=== PATIENT | male | born 1995 | race Caucasian/White ===

== ENCOUNTER 2022-03-17 01:20 | Emergency (ER) | payer MEDICAID ==
[~2022-03-17] VITALS: Ht 167.6 cm; Wt 70.8 kg
[2022-03-17 01:25] VITALS: BP 116/70
--- NOTE | 2022-03-17 01:34 | NUR ---
Patient taken to bed 9.
[2022-03-17] MEDS ORDERED: KETOROLAC 60 MG/2 ML VIAL IM ONE (02:00)
--- NOTE | 2022-03-17 03:57 | NUR ---
Dr. Lopez examining patient.
[2022-03-17] MEDS ORDERED: IBUP-2213 PO (04:11)
[2022-03-17 04:17] VITALS: BP 118/70
== END 2022-03-17 04:17 | disposition home or self-care (01) ==
LOC: MED 01:20
DX: S80.12XA Contusion of left lower leg, initial encounter (principal); V49.88XA Car occupant (driver) (passenger) injured in other specified transport accidents, initial encounter; Y93.89 Activity, other specified; Y92.89 Other specified places as the place of occurrence of the external cause; Y99.8 Other external cause status
CPT/HCPCS: 73562; 96372; 99283; J1885; Q0092

== ENCOUNTER 2023-04-22 17:28 | Emergency (ER) | payer MEDICAID ==
[~2023-04-22] VITALS: Ht 165.1 cm; Wt 63.5 kg
[~2023-04-22 17:28] MED LIST: IBUP-2213 PO
[2023-04-22 17:49] VITALS: BP 129/73; PULSE 96; RESP 18; TEMP 98; O2SAT 98
[2023-04-22] MEDS ORDERED: CEFEPIME 1,000 MG in DEXTROSE 5% 50 ML IV ONE (21:20)
[2023-04-22] MEDS ORDERED: VANCOMYCIN 1,000 MG in DEXTROSE 5% 250 ML IV ONE (21:20)
== END 2023-04-22 22:50 | disposition home or self-care (01) ==
LOC: MED 17:28
DX: I80.02 Phlebitis and thrombophlebitis of superficial vessels of left lower extremity (principal); M86.9 Osteomyelitis, unspecified; Z79.899 Other long term (current) drug therapy
CPT/HCPCS: 71045; 73630; 93971; 99284; Q0092

== ENCOUNTER 2023-05-06 20:23 | Inpatient (IN) | payer MEDICAID ==
[~2023-05-06] VITALS: Ht 167.6 cm; Wt 67.1 kg
[2023-05-06] MEDS: NACL 0.9% 1,000 ML IV SCH (03:15)
[2023-05-06 20:41] VITALS: BP 151/73; PULSE 130; RESP 20; TEMP 98.6; O2SAT 98
[2023-05-06] MEDS ORDERED: VANCOMYCIN PER PHARMACY MC PRN (21:10)
[2023-05-06] MEDS ORDERED: CEFEPIME 1,000 MG in DEXTROSE 5% 50 ML IV ONE (21:10)
[2023-05-06] MEDS ORDERED: NACL 0.9% 2,000 ML IV SCH (21:10)
[2023-05-06] MEDS ORDERED: VANCOMYCIN 1GM/DEXT 5% PREMIX 200 ML IV ONE (21:10)
[2023-05-06] MEDS ORDERED: CEFEPIME 1,000 MG VIAL ONE (21:18)
[2023-05-06] MEDS ORDERED: KETOROLAC 30 MG/ML VIAL IVP ONE (21:20)
[2023-05-06] MEDS ORDERED: ACETAMINOPHEN EXTRA STRENGTH 500 MG TAB PO ONE (21:20)
[2023-05-06 21:41] LABS: BASOPHILS % (AUTO) 0.2 % (0.0-2.0); EOSINOPHILS # (AUTO) 0.1 K/uL (0-0.4); EOSINOPHILS % (AUTO) 0.4 % (0.0-4.0); HEMATOCRIT 37.2 % (36-52); HEMOGLOBIN 12.2 g/dL (12.0-18.0); LYMPHOCYTES # (AUTO) 0.9 K/uL (2.0-11.5); LYMPHOCYTES % (AUTO) 5.8 % (20.5-51.1); MEAN CORPUSCULAR HEMOGLOBIN 25 pg (27-31); MEAN CORPUSCULAR HGB CONC 33 g/dL (33-37); MEAN CORPUSCULAR VOLUME 77.6 fL (80-94); MONOCYTES # (AUTO) 0.2 K/uL (0.8-1.0); MONOCYTES % (AUTO) 1.4 % (1.7-9.3); NEUTROPHILS % (AUTO) 92.2 % (42.2-75.2); PLATELET COUNT (AUTO) 451 K/uL (140-450); RED CELL DISTRIBUTION WIDTH 14.9 % (11.6-13.7); WHITE BLOOD COUNT (AUTO) 16.2 K/uL (4.8-10.8)
[2023-05-06 21:50] LABS: CALCIUM 8.9 mg/dL (8.5-10.1); CARBON DIOXIDE 28.2 mmol/L (21-32); CREATININE 1.8 mg/dL (0.6-1.3); POTASSIUM 3.2 mmol/L (3.5-5.1)
[2023-05-06 21:56] LABS: INR 1.06 (0.8-1.2); PARTIAL THROMBOPLASTIN TIME 25.7 secs (22-35.6); PROTHROMBIN TIME 11.1 secs (10.8-13.4)
[2023-05-06 21:57] LABS: ALBUMIN 3.5 g/dL (3.4-5.0); TOTAL BILIRUBIN 0.4 mg/dL (0.0-1.0); TOTAL PROTEIN, SERUM 7.2 g/dL (6.4-8.2)
[2023-05-06 21:58] LABS: CREATINE KINASE, TOTAL 124 U/L (39-308)
[2023-05-06] MEDS ORDERED: VANCOMYCIN 1,000 MG VIAL ONE (22:00)
[2023-05-06 22:04] LABS: LACTIC ACID 2.1 mmol/L (0.4-2.0)
[2023-05-06] MEDS ORDERED: ACETAMINOPHEN 325 MG TAB PO PRN (23:45)
[2023-05-06] MEDS ORDERED: MORPHINE SULFATE 2 MG/ML SYR IVP PRN (23:45)
[2023-05-06 23:49] LABS: APPEARANCE,URINE CLEAR (CLEAR); BILIRUBIN,URINE NEGATIVE (NEGATIVE); BLOOD, URINE NEGATIVE (NEGATIVE); COLOR,URINE YELLOW (YELLOW); LEUKOCYTE ESTERASE ,URINE NEGATIVE (NEGATIVE); NITRITE, URINE NEGATIVE (NEGATIVE); PROTEIN,URINE NEGATIVE (NEGATIVE); UGLUCOSE NEGATIVE (NEGATIVE); UROBILINOGEN,URINE 0.2 EU/dL (0.2 - 1)
[2023-05-07] VITALS: BP 108/56; PULSE 86; RESP 14; TEMP 99.5; O2SAT 99
[2023-05-07] MEDS ORDERED: NACL 0.9% 1,000 ML IV ONE (00:50)
[2023-05-07] MEDS ORDERED: PIPERACILLIN/TAZOBACTAM 2.25 GM VIAL IV ONE ×3 (05:27→22:13)
[2023-05-07] MEDS: PIPERACILLIN/TAZOBACTAM 2.25 GM in DEXTROSE 5% 50 ML IV SCH ×3 (05:33→22:35)
[2023-05-07 07:41] LABS: HEMATOCRIT 36.1 % (36-52); HEMOGLOBIN 11.4 g/dL (12.0-18.0); MEAN CORPUSCULAR HEMOGLOBIN 25 pg (27-31); MEAN CORPUSCULAR HGB CONC 32 g/dL (33-37); MEAN CORPUSCULAR VOLUME 79.3 fL (80-94); PLATELET COUNT (AUTO) 405 K/uL (140-450); RED BLOOD CELL COUNT(AUTO) 4.56 MIL/uL (4.20-6.10); RED CELL DISTRIBUTION WIDTH 14.8 % (11.6-13.7)
[2023-05-07 07:57] LABS: WHITE BLOOD COUNT (AUTO) 31.6 K/uL (4.8-10.8)
[2023-05-07] MEDS ORDERED: VANCOMYCIN PER PHARMACY MC PRN (08:31)
[2023-05-07 08:42] LABS: BASOPHILS % (MANUAL) 0 % (0-2); BLASTS, MANUAL % 0 % (0-0); EOSINOPHILS % (MANUAL) 0 % (0-4); LYMPHOCYTES % (MANUAL) 3 % (20-46); METAMYELOCYTES % 0 % (0-0); MONOCYTES % (MANUAL) 3 % (5-12); MYELOCYTES % 0 % (0-0); OTHER CELLS,MANUAL % 0 (0-0); PLASMA CELLS 0; PLATELET ESTIMATE INCREASED; PROMYELOCYTES % 0 % (0-0); SMUDGE CELLS 0
[2023-05-07 08:53] LABS: ALBUMIN 2.5 g/dL (3.4-5.0); ANION GAP 4.1 (8-16); CALCIUM 7.9 mg/dL (8.5-10.1); CARBON DIOXIDE 24.7 mmol/L (21-32); CREATININE 1.6 mg/dL (0.6-1.3); MAGNESIUM 1.7 mg/dL (1.8-2.4); PHOSPHORUS 3.6 mg/dL (2.5-4.9); POTASSIUM 3.8 mmol/L (3.5-5.1); TOTAL BILIRUBIN 0.8 mg/dL (0.0-1.0); TOTAL PROTEIN, SERUM 5.7 g/dL (6.4-8.2)
[2023-05-07] MEDS ORDERED: VANCOMYCIN HCL 750 MG PDS IV ONE (11:40)
[2023-05-07] MEDS: VANCOMYCIN 750 MG in DEXTROSE 5% 250 ML IV SCH (11:59)
[2023-05-07] MEDS: HYDROcodone/APAP 5/325 MG 1 TAB TAB PO PRN ×2 (13:50→22:58)
[2023-05-07] MEDS: NACL 0.9% 1,000 ML IV SCH ×2 (15:00→22:35)
[2023-05-07 22:00] VITALS: BP 121/67; PULSE 113; PULSE 98; RESP 18; TEMP 100.5; O2SAT 100; O2SAT 98
[2023-05-07] MEDS ORDERED: VANCOMYCIN 1,000 MG VIAL ONE (23:57)
[2023-05-08] VITALS (7 sets, daily range): BP systolic 96–109; BP diastolic 48–57; PULSE 66–100; RESP 18; TEMP 85–98.2; O2SAT 98–100
[2023-05-08] MEDS: VANCOMYCIN 750 MG in DEXTROSE 5% 250 ML IV SCH ×2 (00:46→11:59)
[2023-05-08] MEDS ORDERED: PIPERACILLIN/TAZOBACTAM 2.25 GM VIAL IV ONE (04:21)
[2023-05-08] MEDS: PIPERACILLIN/TAZOBACTAM 2.25 GM in DEXTROSE 5% 50 ML IV SCH ×3 (05:39→20:23)
[2023-05-08] MEDS: NACL 0.9% 1,000 ML IV SCH ×2 (05:41→15:46)
[2023-05-08 07:04] LABS: BASOPHILS # (AUTO) 0.1 K/uL (0.00-0.22); BASOPHILS % (AUTO) 0.6 % (0.0-2.0); EOSINOPHILS # (AUTO) 0.4 K/uL (0-0.4); EOSINOPHILS % (AUTO) 2.9 % (0.0-4.0); HEMATOCRIT 33.6 % (36-52); HEMOGLOBIN 10.7 g/dL (12.0-18.0); LYMPHOCYTES # (AUTO) 2.4 K/uL (2.0-11.5); LYMPHOCYTES % (AUTO) 18.5 % (20.5-51.1); MEAN CORPUSCULAR HEMOGLOBIN 25 pg (27-31); MEAN CORPUSCULAR HGB CONC 32 g/dL (33-37); MEAN CORPUSCULAR VOLUME 79.2 fL (80-94); MONOCYTES % (AUTO) 7.9 % (1.7-9.3); NEUTROPHILS # (AUTO) 9.2 K/uL (1.8-7.7); NEUTROPHILS % (AUTO) 70.1 % (42.2-75.2); PLATELET COUNT (AUTO) 334 K/uL (140-450); RED BLOOD CELL COUNT(AUTO) 4.24 MIL/uL (4.20-6.10); RED CELL DISTRIBUTION WIDTH 14.4 % (11.6-13.7); WHITE BLOOD COUNT (AUTO) 13.2 K/uL (4.8-10.8)
[2023-05-08 07:24] LABS: ALBUMIN 2.3 g/dL (3.4-5.0); ANION GAP 11.2 (8-16); CALCIUM 7.8 mg/dL (8.5-10.1); CARBON DIOXIDE 25.2 mmol/L (21-32); CREATININE 1.5 mg/dL (0.6-1.3); MAGNESIUM 1.9 mg/dL (1.8-2.4); PHOSPHORUS 3.8 mg/dL (2.5-4.9); POTASSIUM 3.4 mmol/L (3.5-5.1); TOTAL BILIRUBIN 0.2 mg/dL (0.0-1.0); TOTAL PROTEIN, SERUM 5.6 g/dL (6.4-8.2)
[2023-05-08] MEDS: SULFAMETH/TRIMETH 400/80MG 1 TAB PO SCH ×2 (08:32→21:23)
[2023-05-08 10:47] LABS: ANION GAP 11.7 (8-16); CALCIUM 7.9 mg/dL (8.5-10.1); CARBON DIOXIDE 25.8 mmol/L (21-32); CREATININE 1.5 mg/dL (0.6-1.3); POTASSIUM 3.5 mmol/L (3.5-5.1)
[2023-05-08] MEDS: VANCOMYCIN 1,000 MG in DEXTROSE 5% 250 ML IV SCH (23:00)
[2023-05-09] VITALS: BP 89/53; PULSE 69; RESP 20; TEMP 98.2; O2SAT 98
[2023-05-09] MEDS: NACL 0.9% 1,000 ML IV SCH ×2 (01:16→13:10)
[2023-05-09 04:00] VITALS: BP 98/38; PULSE 63; PULSE 69; RESP 18; TEMP 98.2; O2SAT 98
[2023-05-09] MEDS: PIPERACILLIN/TAZOBACTAM 2.25 GM in DEXTROSE 5% 50 ML IV SCH ×3 (05:43→20:38)
[2023-05-09 06:14] LABS: BASOPHILS # (AUTO) 0.1 K/uL (0.00-0.22); BASOPHILS % (AUTO) 0.7 % (0.0-2.0); EOSINOPHILS # (AUTO) 0.4 K/uL (0-0.4); EOSINOPHILS % (AUTO) 4.3 % (0.0-4.0); HEMATOCRIT 34.9 % (36-52); HEMOGLOBIN 11.3 g/dL (12.0-18.0); LYMPHOCYTES # (AUTO) 2.5 K/uL (2.0-11.5); LYMPHOCYTES % (AUTO) 25.3 % (20.5-51.1); MEAN CORPUSCULAR HEMOGLOBIN 26 pg (27-31); MEAN CORPUSCULAR HGB CONC 32 g/dL (33-37); MEAN CORPUSCULAR VOLUME 78.6 fL (80-94); MONOCYTES % (AUTO) 10.3 % (1.7-9.3); NEUTROPHILS # (AUTO) 5.9 K/uL (1.8-7.7); NEUTROPHILS % (AUTO) 59.4 % (42.2-75.2); PLATELET COUNT (AUTO) 397 K/uL (140-450); RED BLOOD CELL COUNT(AUTO) 4.44 MIL/uL (4.20-6.10); RED CELL DISTRIBUTION WIDTH 14.6 % (11.6-13.7); WHITE BLOOD COUNT (AUTO) 9.9 K/uL (4.8-10.8)
[2023-05-09 06:33] LABS: ALBUMIN 2.4 g/dL (3.4-5.0); ANION GAP 9.9 (8-16); CALCIUM 8.2 mg/dL (8.5-10.1); CARBON DIOXIDE 27.4 mmol/L (21-32); CREATININE 1.3 mg/dL (0.6-1.3); MAGNESIUM 1.8 mg/dL (1.8-2.4); PHOSPHORUS 3.6 mg/dL (2.5-4.9); POTASSIUM 4.3 mmol/L (3.5-5.1); TOTAL BILIRUBIN 0.2 mg/dL (0.0-1.0); TOTAL PROTEIN, SERUM 6.2 g/dL (6.4-8.2)
[2023-05-09 08:00] VITALS: BP 110/52; PULSE 62; PULSE 70; RESP 20; TEMP 97.7; O2SAT 100
[2023-05-09] MEDS: VANCOMYCIN 1,000 MG in DEXTROSE 5% 250 ML IV SCH ×2 (11:42→22:22)
[2023-05-09 12:00] VITALS: BP 110/52; PULSE 62; RESP 20; TEMP 97.7; O2SAT 100
[2023-05-09 16:00] VITALS: BP 97/52; PULSE 68; RESP 20; TEMP 98.2; O2SAT 100
[2023-05-09 20:00] VITALS: BP 113/48; PULSE 73; RESP 18; TEMP 98.6; O2SAT 100
[2023-05-10 04:00] VITALS: BP 93/47; PULSE 67; RESP 18; TEMP 97.1; O2SAT 100
[2023-05-10] MEDS: PIPERACILLIN/TAZOBACTAM 2.25 GM in DEXTROSE 5% 50 ML IV SCH (05:16)
[2023-05-10 05:40] LABS: BASOPHILS # (AUTO) 0.1 K/uL (0.00-0.22); BASOPHILS % (AUTO) 0.9 % (0.0-2.0); EOSINOPHILS # (AUTO) 0.4 K/uL (0-0.4); EOSINOPHILS % (AUTO) 4.6 % (0.0-4.0); HEMOGLOBIN 12.3 g/dL (12.0-18.0); LYMPHOCYTES # (AUTO) 2.5 K/uL (2.0-11.5); LYMPHOCYTES % (AUTO) 29.4 % (20.5-51.1); MEAN CORPUSCULAR HEMOGLOBIN 26 pg (27-31); MEAN CORPUSCULAR HGB CONC 33 g/dL (33-37); MEAN CORPUSCULAR VOLUME 78.4 fL (80-94); MONOCYTES # (AUTO) 0.7 K/uL (0.8-1.0); MONOCYTES % (AUTO) 8.3 % (1.7-9.3); NEUTROPHILS # (AUTO) 4.9 K/uL (1.8-7.7); NEUTROPHILS % (AUTO) 56.8 % (42.2-75.2); PLATELET COUNT (AUTO) 500 K/uL (140-450); RED BLOOD CELL COUNT(AUTO) 4.84 MIL/uL (4.20-6.10); RED CELL DISTRIBUTION WIDTH 15.1 % (11.6-13.7); WHITE BLOOD COUNT (AUTO) 8.6 K/uL (4.8-10.8)
[2023-05-10 07:22] LABS: ANION GAP 13.9 (8-16); CALCIUM 8.6 mg/dL (8.5-10.1); CARBON DIOXIDE 26.1 mmol/L (21-32)
[2023-05-10 07:23] LABS: CREATININE 1.3 mg/dL (0.6-1.3)
[2023-05-10 08:00] VITALS: PULSE 75; RESP 17; O2SAT 100
[2023-05-10] MEDS: VANCOMYCIN 1,000 MG in DEXTROSE 5% 250 ML IV SCH (12:31)
[2023-05-20] MEDS ORDERED: [UNRECOGNIZED DRUG - REMARK] IV (13:51)
== END 2023-05-10 13:40 | disposition left against medical advice (07) | DRG 720 ==
LOC: MED 20:23 → MMU 23:52 → MTU 05-07 05:03 → MMU 05-07 05:03 → MTU 05-07 17:48
PROVIDERS: ADMIT Student in an Organized Health Care Education/Training Program; ATTEND Student in an Organized Health Care Education/Training Program
DX: A41.9 Sepsis, unspecified organism (principal); R65.21 Severe sepsis with septic shock; N17.9 Acute kidney failure, unspecified; M86.172 Other acute osteomyelitis, left ankle and foot; L97.329 Non-pressure chronic ulcer of left ankle with unspecified severity; E87.6 Hypokalemia; B96.89 Other specified bacterial agents as the cause of diseases classified elsewhere; F15.10 Other stimulant abuse, uncomplicated; F17.210 Nicotine dependence, cigarettes, uncomplicated; Z53.29 Procedure and treatment not carried out because of patient's decision for other reasons; L03.116 Cellulitis of left lower limb; M86.8X7 Other osteomyelitis, ankle and foot; Z22.321 Carrier or suspected carrier of Methicillin susceptible Staphylococcus aureus
CPT/HCPCS: 36415; 71045; 73610; 73701; 80048; 80053; 80202; 81003; 82550; 83605; 83735; 83880; 84100; 84484; 85025; 85610; 85651; 85730; 86140; 87040; 87081; 87086; 87186; 93005; 93970; 96365; 96366; 96368; 96375; 97116; 97530; 99291; J0692; J1885; J2270; J2543; J3370; J7060; Q0092; Q9967

== ENCOUNTER 2023-09-22 22:30 | Emergency (ER) | payer MEDICAID ==
[~2023-09-22] VITALS: Ht 167.6 cm; Wt 63.5 kg
[~2023-09-22 22:30] MED LIST changes: -IBUP-2213 PO; +[UNRECOGNIZED DRUG - REMARK] IV
[2023-09-22 22:55] VITALS: BP 135/90; PULSE 76; RESP 17; TEMP 98.1; O2SAT 100
[2023-09-22 23:50] VITALS: O2SAT 99
[2023-09-23] MEDS ORDERED: cefTRIAXone 1,000 MG VIAL ONE (00:21)
[2023-09-23] MEDS ORDERED: LIDOCAINE MPF 1% 5 ML ONE (00:21)
[2023-09-23] MEDS: cefTRIAXone 1,000 MG in LIDOCAINE MPF 1% 2.1 ML IM ONE (00:25)
[2023-09-23] MEDS ORDERED: CEPH-588 PO (00:55)
== END 2023-09-23 01:05 | disposition home or self-care (01) ==
LOC: MED 22:30
DX: J34.0 Abscess, furuncle and carbuncle of nose (principal); Z79.899 Other long term (current) drug therapy
CPT/HCPCS: 96372; 99283; J0696; J2001